=== PATIENT | female | born 1970 | race Caucasian/White ===

== ENCOUNTER 2017-03-21 17:31 | Emergency (ER) | payer SELFPAY ==
[~2017-03-21] VITALS: Ht 165.1 cm; Wt 88.0 kg
[~2017-03-21 17:31] MED LIST: CLON1 PO; NEXI20CA PO; VALT1TAB26 PO
[2017-03-21 17:33] VITALS: BP 133/77; PULSE 104; RESP 20; TEMP 98.1; O2SAT 98
[2017-03-21] MEDS ORDERED: CLON1 PO (17:54)
[2017-03-21] MEDS ORDERED: CETI-1 (17:54)
[2017-03-21] MEDS ORDERED: NEXI40CA PO (17:54)
[2017-03-21] MEDS ORDERED: SODIUM CHLORIDE 0.9% FLUSH 10 ML FLUSH IVF PRN (18:00)
[2017-03-21 18:02] VITALS: RESP 21; O2SAT 94
[2017-03-21 18:04] VITALS: BP_SYST 113; BP_SYST 126; BP_DIAS 63; BP_DIAS 69
--- NOTE | 2017-03-21 18:07 | PD ---
HPI Chief Complaint: Chest Pain Time Seen by Provider: 17:59 Travel History International Travel<30 days: No Contact w/Intl Traveler<30days: No Traveled to known affect area: No History of Present Illness HPI ONGOING FOR 2 DAYS H/O CHEST DISCOMFORT SHARP AND NONRADIATING....NO CURRENT PAIN, NO COUGH/FEVER PFSH Past Medical History Anxiety: Yes Respiratory: Yes (ASTHMA) : 2 Para: 2 Tubal Ligation: Yes Past Surgical History Gynecologic Surgery: Yes (leep) Social History Alcohol Use: Yes Tobacco Use: Yes Substance Use: No Allergies-Medications (Allergen,Severity, Reaction): Coded Allergies: Flexeril (Verified Allergy, Severe, 03/21/17) Prednisone (Verified Allergy, Severe, 03/21/17) ANXIETY Reported Meds & Prescriptions Reported Meds & Active Scripts Active Reported Klonopin (Clonazepam) 1 Mg Tab 1 Mg PO DAILY Zyrtec (Cetirizine HCl) 10 Mg Tablet Nexium (Esomeprazole DR) 40 Mg Capdr 40 Mg PO DAILY Review of Systems Except as stated in HPI: all other systems reviewed are Neg Cardiovascular: Positive: Chest Pain or Discomfort, Palpitations Physical Exam Narrative GENERAL: SKIN: Warm and dry. HEAD: Atraumatic. Normocephalic. EYES: Pupils equal and round. No scleral icterus. No injection or drainage. ENT: No nasal bleeding or discharge. Mucous membranes pink and moist. NECK: Trachea midline. No JVD. CARDIOVASCULAR: Regular rate and rhythm. RESPIRATORY: No accessory muscle use. Clear to auscultation. Breath sounds equal bilaterally. GASTROINTESTINAL: Abdomen soft, non-tender, nondistended. Hepatic and splenic margins not palpable. MUSCULOSKELETAL: Extremities without clubbing, cyanosis, or edema. No obvious deformities. NEUROLOGICAL: Awake and alert. No obvious cranial nerve deficits. Motor grossly within normal limits. Five out of 5 muscle strength in the arms and legs. Normal speech. PSYCHIATRIC: Appropriate mood and affect; insight and judgment normal. Data Data Last Documented VS Vital Signs Date Time Temp Pulse Resp B/P Pulse Ox O2 Delivery O2 Flow Rate FiO2 03/21/17 18:04 126/69 113/63 03/21/17 18:02 21 94 Room Air 03/21/17 17:33 98.1 104 Orders Electrocardiogram (03/21/17 17:53) Ckmb (Isoenzyme) Profile (03/21/17 17:53) Complete Blood Count With Diff (03/21/17 17:53) Comprehensive Metabolic Panel (03/21/17 17:53) Prothrombin Time / Inr (Pt) (03/21/17 17:53) Act Partial Throm Time (Ptt) (03/21/17 17:53) Troponin I (03/21/17 17:53) Chest, Single Ap (03/21/17 17:53) Ecg Monitoring (03/21/17 17:53) Bilateral Bp Monitoring (03/21/17 17:53) Iv Access Insert/Monitor (03/21/17 17:53) Oximetry (03/21/17 17:53) Oxygen Administration (03/21/17 17:53) Sodium Chloride 0.9% Flush (Ns Flush) (03/21/17 18:00) MDM Medical Decision Making Medical Screen Exam Complete: Yes Emergency Medical Condition: Yes Medical Record Reviewed: Yes Interpretation(s) NSR 90, NO STEMI PATTERN, NL INTERVALS, Differential Diagnosis ATYPICAL CP V IA V PNA Narrative Course EKG DID NOT SHOW ANY E/O IA, CXR NEG FOR PNA/PTX, SINCE PATIENT'S PAIN HAS BEEN CONTINOUS FOR OVER 12HRS, SINGLE TROPONIN SHOULD SUFFICE FOR R/O OF NONSTEMI, IF TROP NEG WILL D/C AND ADVISE OUTPATIENT CARDIAC RISK STRATIFICATION Diagnosis Primary Impression: ATYPICAL CHEST PAIN Additional Instructions: RECCOMMEND YOU FOLLOWUP WITH [facility] FOR OUTPATIENT CARDIAC RISK STRATIFICATION. Scripts Tramadol (Ultram)50 Mg Tab50 Mg PO Q4H PRN (PAIN) #28 TAB Prov:Herminio Tolbert MD 03/21/17 Disposition: 01 DISCHARGE HOME Condition: Stable Herminio Tolbert MD Mar 21, 2017 18:07
--- NOTE | 2017-03-21 18:40 | RADRPT ---
EXAM DATE/TIME: 03/21/2017 17:52 [facility] COMPARISON: CHEST PA & LAT, November 01, 2009, 15:30. INDICATIONS : Chest pain. MEDICAL HISTORY : Asthma SURGICAL HISTORY : None. ENCOUNTER: Initial ACUITY: 1 day PAIN SCORE: 6/10 LOCATION: Bilateral chest FINDINGS: Portable AP view of the chest demonstrates a normal-sized cardiac silhouette. No effusion, consolidat ion, or pneumothorax is visualized. The bones and soft tissues demonstrate no acute abnormality. Lung s are underinflated. CONCLUSION: Underinflated examination. No acute cardiopulmonary abnormality is identified. Karlos Holden MD on March 21, 2017 at 18:37 Board Certified Radiologist. This report was verified electronically.
[2017-03-21] MEDS ORDERED: ULTR50TA5 PO (18:45)
[2017-03-21 18:48] LABS: AUTOMATED NEUTROPHIL # 5.6 TH/MM3 (1.8-7.7); BASOPHIL # 0.1 TH/MM3 (0-0.2); BASOPHIL % 1.2 % (0.0-2.0); EOSINOPHIL # 0.1 TH/MM3 (0-0.4); EOSINOPHIL % 1.7 % (0.0-4.0); HEMATOCRIT 39.3 % (35.0-46.0); HEMO FLAGS DIFF FINAL; LYMPH % 28.2 % (9.0-44.0); LYMPHOCYTE # 2.5 TH/MM3 (1.0-4.8); MEAN CELL VOLUME 83.6 FL (80.0-100.0); MEAN CORPUSCULAR HEMOGLOBIN 27.1 PG (27.0-34.0); MEAN CORPUSCULAR HGB CONC 32.4 % (32.0-36.0); MONO % 6.9 % (0.0-8.0); PLATELET COUNT 278 TH/MM3 (150-450); RED CELL DISTRIBUTION WIDTH 13.5 % (11.6-17.2)
[2017-03-21 19:01] LABS: APTT (PATIENT) 27.5 SEC (24.3-30.1); INTERNATIONAL NORMALIZED RATIO 0.9 RATIO; PROTHROMBIN TIME - PATIENT 10.3 SEC (9.8-11.6)
[2017-03-21 19:03] LABS: ANION GAP 11 MEQ/L (5-15); AST (GOT) 20 U/L (15-37); BICARBONATE 23.6 MEQ/L (21.0-32.0); BLOOD UREA NITROGEN 12 MG/DL (7-18); CHLORIDE 105 MEQ/L (98-107); GLOMERULAR FILTRATION RATE 72 ML/MIN (>89); POTASSIUM 3.3 MEQ/L (3.5-5.1); SODIUM (NA) 140 MEQ/L (136-145)
[2017-03-21 19:04] LABS: ALT (GPT) 26 U/L (10-53)
[2017-03-21 19:08] LABS: ALKALINE PHOSPHATASE 95 U/L (45-117); CREATINE KINASE 107 U/L (26-192); TOTAL BILIRUBIN ADULT 0.3 MG/DL (0.2-1.0)
[2017-03-21 19:20] LABS: CKMB 0.7 NG/ML (0.5-3.6)
--- NOTE | 2017-03-22 14:19 | EKG ---
Date Performed: 03/21/2017 Time Performed: 17:50:28 PTAGE: 47 years EKG: Sinus rhythm WITH SHORT MS INTERVAL POSSIBLE LEFT ATRIAL ENLARGEMENT Since previous tracing, no significant dewitt e noted BORDERLINE ECG PREVIOUS TRACING : 11/01/2009 15.38 DOCTOR: Woody Boo Interpretating Date/Time 03/22/2017 14:15:52
== END 2017-03-21 20:18 | disposition home or self-care (01) ==
LOC: NEPC 17:31
DX: R07.89 Other chest pain (principal); F41.9 Anxiety disorder, unspecified; J45.909 Unspecified asthma, uncomplicated; Z72.0 Tobacco use; Z79.899 Other long term (current) drug therapy
CPT/HCPCS: 71010; 80053; 82550; 82552; 84484; 85025; 85610; 85730; 93005; 99285